=== PATIENT | female | born 1990 | race Caucasian/White ===

== ENCOUNTER 2022-08-01 12:14 | Outpatient (OUT) | payer OTHER, SELFPAY ==
--- NOTE | 2022-08-01 12:28 | XR_ITS ---
The [address] [address] Patient Name: ANDRE ESCAMILLA MRN: [id number] date: 1990 Sex: F Assigned Patient Location: [facility] Current Patient Location: [facility] Accession/Order Number: [id number] Exam Date: 08/01/2022 12:33 Report Date: 08/01/2022 12:55 At the request of: MACARIO DIALLO Procedure: XR forearm LT 2V PROCEDURE: XR forearm LT 2V, XR wrist LT min 3V HISTORY: Left forearm pain ; acute left forearm and wrist pain after pulling injury COMPARISON: None. FINDINGS: BONES:No fracture, acute abnormality, or significant arthropathy. SOFT TISSUES:No visible soft tissue swelling. EFFUSION:None visible. OTHER: Negative. IMPRESSION: 1. No acute bone abnormality or appreciable soft tissue injury. Electronically authenticated by: DEON MOELLER Date: 08/01/2022 12:55
--- NOTE | 2022-08-01 12:28 | XR_ITS ---
The [address] [address] Patient Name: ANDRE ESCAMILLA MRN: [id number] date: 1990 Sex: F Assigned Patient Location: [facility] Current Patient Location: [facility] Accession/Order Number: [id number] Exam Date: 08/01/2022 12:33 Report Date: 08/01/2022 12:55 At the request of: MACARIO DIALLO Procedure: XR wrist LT min 3V PROCEDURE: XR forearm LT 2V, XR wrist LT min 3V HISTORY: Left forearm pain ; acute left forearm and wrist pain after pulling injury COMPARISON: None. FINDINGS: BONES:No fracture, acute abnormality, or significant arthropathy. SOFT TISSUES:No visible soft tissue swelling. EFFUSION:None visible. OTHER: Negative. IMPRESSION: 1. No acute bone abnormality or appreciable soft tissue injury. Electronically authenticated by: DEON MOELLER Date: 08/01/2022 12:55
== END 2022-08-01 12:15 | disposition home or self-care (01) ==
LOC: RAD 12:23
PROVIDERS: Visit Provider Nurse Practitioner Family
DX: M79.632 Pain in left forearm (principal); M25.532 Pain in left wrist
CPT/HCPCS: 73090; 73110